=== PATIENT | female | born 1990 | race Caucasian/White ===

== ENCOUNTER 2022-02-10 16:10 | Emergency (ER) | payer OTHER, SELFPAY ==
[2022-02-10 16:45] VITALS: BP 125/78; PULSE 59; RESP 18; TEMP 36.9; O2SAT 99
--- NOTE | 2022-02-10 17:20 | ED.GENADULT ---
HPI - General Adult General Chief complaint: Upper Respiratory Infection Stated complaint: cough,congestion History of Present Illness HPI narrative: Mrs. Pereira is a plesant 31 y/o female. PMHx non-contributory. Presents to [facility] today with acute complaints of maxillary facial pressure, sinus congestion, purulent nasal discharge, and cough for the past 1.5 weeks. She describes a thick nasal discharge, PND, and URI irritation. No fevers. No neck pain. No GARCIA, focal weakness. Cough, without wheezing or dyspnea. Denies chest pain, palpitations, edema. Denies GI upset/N/V/D. Client reports to have been recently exposed to young child at home, ill with similar issues. She had taken a home Covid 19 test [employer], and this was negative. She is without additional acute c/o upon PE. Related Data Home Medications Medication Instructions Recorded Confirmed cyclobenzaprine 10 mg tablet 10 mg DIRECTED 02/10/22 02/10/22 estradiol 2 mg tablet 2 mg DAILY 02/10/22 02/10/22 Allergies Allergy/AdvReac Type Severity Reaction Status Date / Time No Known Allergies Allergy Verified 02/10/22 17:25 Review of Systems Review of Systems: CONSTITUTIONAL: Denies fever, chills, sweats. EYES: Denies visual changes, redness, discharge. ENT: + rhinorrhea, congestion. No sore throat, otalgia. CARDIOVASCULAR: Denies chest pain, palpitations, edema. RESPIRATORY: Denies dyspnea, wheezing. + cough. GASTROINTESTINAL: Denies abdominal pain, nausea, vomiting, diarrhea. GENITOURINARY: Denies dysuria, hematuria, abnormal discharge SKIN: Denies rash or itching. MUSCULOSKELETAL: Denies acute back pain, joint pain, or myalgia. NEUROLOGIC: Denies numbness, or focal weakness. PSYCHIATRIC: Denies anxiety or depression. Exam Narrative: GENERAL: This is a well-nourished, well-developed adult, in no apparent distress. HEAD: normocephalic. EYES: Sclera clear/white. EARS: External ears normal, auditory canals clear and without drainage, TMs normal. NOSE: External nose normal. Positive Rhinorrhea, PND. No obstruction, nares patent. THROAT: Mucous membranes moist, posterior pharynx is erythematous. No exudative changes. Uvula midline, no airway swelling or stridor. NECK: Neck supple, non-tender without lymphadenopathy, masses or thyromegaly. No meningeal signs. CARDIOVASCULAR: Regular rate and rhythm without murmurs, gallops, or rubs. RESPIRATORY: Breath sounds equal bilaterally. Upper airway Rhonchi, cleared w/cough. No wheezes, rales, or distress. GASTROINTESTINAL: Abdomen soft. SKIN: warm, intact. NEURO: Alert, active. No focal neurologic deficits. Course Course Level of Care: Express Care Visit Vital Signs Vital signs: Vital Signs Temperature 36.9 C 02/10/22 16:45 Pulse Rate 59 L 02/10/22 16:45 Respiratory Rate 18 02/10/22 16:45 Blood Pressure 125/78 02/10/22 16:45 Pulse Oximetry 99 02/10/22 16:45 Oxygen Delivery Room Air 02/10/22 16:45 Temperature 36.9 C 02/10/22 16:45 Pulse Rate 59 L 02/10/22 16:45 Respiratory Rate 18 02/10/22 16:45 Blood Pressure 125/78 02/10/22 16:45 Pulse Oximetry 99 02/10/22 16:45 Oxygen Delivery Room Air 02/10/22 16:45 Medical Decision Making MDM Narrative Medical decision making narrative: -Afebrile, non-tachycardic, appears non-toxic. -Will start on oral Amoxicillin antimicrobial & steroid regimen, consider bacterial component w/manifestations now > 1.5 weeks. -May resume all additional OTC remedies prn for other symptomatic reliefs. -PCP F/U 1WK. -ER W/Emergent status changes. Pt agrees. Differential Diagnosis Differential Diagnosis: Differential Diagnosis: Consideration of the following conditions may be warranted for the presenting problem, they are not final diagnoses: upper respiratory infection, otitis media, sinusitis, RSV viral infection, bronchitis, pharyngitis, Streptococcal sore throat, COVID-19, and other. Vital Signs Vital
== END 2022-02-10 17:36 | disposition home or self-care (01) ==
PROVIDERS: Emergency Provider Nurse Practitioner Adult Health; PCP Physician Assistant
DX: J02.9 Acute pharyngitis, unspecified (principal); J32.9 Chronic sinusitis, unspecified
CPT/HCPCS: 99203; G0463

== ENCOUNTER 2023-01-30 08:01 | Emergency (ER) | payer OTHER, SELFPAY ==
--- NOTE | 2023-01-30 08:08 | ED.URI ---
HPI - URI/Sore Throat General Chief Complaint: Upper Respiratory Infection Stated Complaint: sorethroat,congestion Time Seen by Provider: 01/30/23 08:10 Source: patient Mode of arrival: ambulatory Limitations: no limitations History of Present Illness HPI Narrative: Tita is a 32-year-old female patient presenting to the clinic today with complaints of sore throat and nasal congestion x1-2 days. She reports no fever or chills. States she has had bronchitis and croup going around at home. Related Data Home Medications Medication Instructions Recorded Confirmed cyclobenzaprine 10 mg tablet 10 mg DIRECTED 02/10/22 02/10/22 estradiol 2 mg tablet 2 mg DAILY 02/10/22 02/10/22 Allergies Allergy/AdvReac Type Severity Reaction Status Date / Time No Known Allergies Allergy Verified 02/10/22 17:25 Review of Systems Review of Systems: Pertinent positives per HPI. Patient denies any fever, chills, rash, headache, visual changes, dizziness, shortness of breath, chest pain, palpitations, nausea, vomiting, diarrhea, constipation, abdominal pain, or any urinary issues. PMFSH Comments At the time of my signature, I reviewed and agree with the nursing past medical, surgical, social, and family history. There is no relevant family history pertinent to the patient complaint. Exam Narrative: General: Well-developed, well nourished, in no apparent distress Head: Normocephalic, atraumatic Eyes: Pupils equally round and reactive to light bilaterally, EOM intact, sclera and conjunctive clear, no discharge, lids normal Ears: TMs intact and clear, ear canals clear, no drainage, grossly hearing normal. Nose: Nares patent, clear discharge, no inflammation, no sinus tenderness. Mouth: Oropharynx without lesions or masses, good dentition, MMM. PND Neck: Supple, trachea midline, no enlargement of anterior or posterior cervical nodes, no thyroid masses or goiter palpable. Cardio: Regular rate and rhythm, s1 and s2 normal, no murmur appreciated. Resp: Clear to auscultation bilaterally anteriorly and posteriorly, no rhonchi, rales, wheezing or rubs Course Course Emergency Course: Portions of this record may have been created with voice recognition software. Level of Care: Express Care Visit Vital Signs Vital signs: Vital Signs Temperature 36.5 C 01/30/23 08:20 Pulse Rate 74 01/30/23 08:20 Respiratory Rate 20 01/30/23 08:20 Blood Pressure 112/69 01/30/23 08:20 Pulse Oximetry 100 01/30/23 08:20 Oxygen Delivery Room Air 01/30/23 08:20 Temperature 36.5 C 01/30/23 08:20 Pulse Rate 74 01/30/23 08:20 Respiratory Rate 20 01/30/23 08:20 Blood Pressure 112/69 01/30/23 08:20 Pulse Oximetry 100 01/30/23 08:20 Oxygen Delivery Room Air 01/30/23 08:20 Vital signs reviewed MDM - URI/Sore Throat MDM Narrative Medical decision making narrative: At the time of visit patient is resting comfortably on the exam table. COVID and strep swab was obtained and were negative. I suspect patient has URI/pharyngitis. Supportive measures were discussed with the patient she voiced understanding discharge instructions agrees to treatment plan. Differential Diagnosis Differential diagnosis: Likely upper respiratory infection, otitis media, sinusitis, viral infection, bronchitis, influenza, pharyngitis and other (COVID) Lab Data Labs: Strep Screen Presumptive Negative *(Reference Range: Negative)* Discharge Plan Discharge Clinical Impression: Upper respiratory infection Qualifiers: URI type: unspecified URI Qualified Code(s): J06.9 - Acute upper respiratory infection, unspecified Pharyngitis Qualifiers: Pharyngitis/tonsillitis etiology: unspecified etiology Qualified Code(s): J02.9 - Acute pharyngitis, unspecified Patient Disposition: Home, Self-Care Condition: Stable Instructions: Antibiotic Form, Pharyngitis (ED)
[2023-01-30 08:20] VITALS: BP 112/69; PULSE 74; RESP 20; TEMP 36.5; O2SAT 100
== END 2023-01-30 08:42 | disposition home or self-care (01) ==
PROVIDERS: Emergency Provider Nurse Practitioner Family; PCP Physician Assistant
DX: J06.9 Acute upper respiratory infection, unspecified (principal)
CPT/HCPCS: 87081; 87880; 99213; G0463

== ENCOUNTER 2025-04-11 09:10 | Outpatient (CLI) | payer OTHER, SELFPAY ==
--- NOTE | 2025-04-11 09:39 | ECG_ITS ---
Test Date: 2025-04-11 09:48:03 Measurements Intervals [place] Rate: 65 P: 48 WV: 109 QRS: 35 QRSD: 82 T: 28 QT: 371 QTc: 387 Interpretive Statements SINUS RHYTHM WITH SHORT WV INTERVAL No previous ECG available for comparison Electronically Signed On 04-11-2025 18:05:09 RECREATION INSTRUCTOR by Heather Mireles M.D.
--- OUTSIDE RECORDS SUMMARY | 2025-04-11 09:47 | XMS_ITS | Clinical Summary ---
Author Organization [facility] Address [address] [place] [address] Care Team Providers Care Almond Pan Finisher Name Role Phone Marcelo Martino PA-C Primary Care Provider [phone] Min Lyman OD Unavailable [phone] Source Comments [facility],non-owned Affiliates and Associated Physician Practices is amultiple site organization consisting of ambulatory clinics and hospital sitesin [place], [place], [place] and [place]. This disclosure is being madepursuant to the Care Everywhere program and may not contain all information available regarding this patient. Last updated 18.[facility] Allergies No known active allergies Medications * Be aware that medications may not be up to date on this document. Alwaysverify current medications with the patient. Ondansetron HCl (ZOFRAN PO) Active neomycin-polymy fozia-dexameth (Maxitrol) ophthalmic ointment Instill into left eye 2 times daily 12/29/2023 Active cyclobenzaprine (Flexeril) 10 MG tablet Take 1 (one) tablet by mouth nightly as needed 08/06/2022 Active Active Problems Comments Yes No known active problems Family History Medical History Relation Name Comments Cancer - Breast Mother Asthma Neg Hx Autoimmune Disease Neg Hx Bipolar Disorder Neg Hx Cancer - Colon Neg Hx Cancer - Other Neg Hx Cancer - Ovarian Neg Hx Cancer - Pancreatic Neg Hx Cancer - Prostate Neg Hx Depression Neg Hx Eczema Neg Hx Hypertension Neg Hx Migraine Neg Hx Osteoporosis Neg Hx Seizures Neg Hx Sudd. <30 Neg Hx Thyroid Disease Neg Hx Ulcerative Colitis Neg Hx Relation Name Status Comments Father Alive Mother Alive Social History Tobacco Use Types Packs/Day Years Used Date Smoking Tobacco: Never Smokeless Tobacco: Never Tobacco Cessation:Counseling Given: No Alcohol Use Standard Drinks/Week Comments No 0 (1 standard drink = 0.6 oz pur e alcohol) Comments Yes Sex and Gender Information Value Date Recorded Sex Assigned at Not on file Legal Sex Female 5:41 AM GROCERY MANAGER Gender Identity Not on file Sexual Orientation Not on file Last Filed Vital Signs Vital Sign Reading Time Taken Comments Blood Pressure 110/64 05/04/2018 11:28 AM GROCERY MANAGER Pulse 80 05/04/2018 11:28 AM GROCERY MANAGER Temperature 36.7 C (98 F) 05/04/2018 11:28 AM GROCERY MANAGER Respiratory Rate 16 05/04/2018 11:28 AM GROCERY MANAGER Oxygen Saturation 98% 05/04/2018 11:28 AM GROCERY MANAGER Inhaled Oxygen Concentration - - Weight 61.2 kg (135 lb) 05/04/2018 11:28 AM GROCERY MANAGER Height 162.6 cm (5' 4) 05/04/2018 11:28 AM GROCERY MANAGER Body Mass Index 23.17 05/04/2018 11:28 AM GROCERY MANAGER Plan of Treatment Health Maintenance Due Date Last Done Comments HIV SCREENING 2004 HEPATITIS C SCREENING 10/09/2007 DTAP/TDAP/TD VACCINES (1 - Tdap) 2008 HEPATITIS B VACCINE (1 of 3 - 19+ 3-dose series) 2008 PAP SMEAR 2010 HPV VACCINE (1 - 3-dose SCDM series) 2016 DEPRESSION SCREENING 06/01/2024 COVID-19 VACCINE (3 - 2024-2 6 season) 2025 09/11/2020, 08/14/2020 INFLUENZA VACCINE (#1) 2025 03/01/2020 ZOSTER VACCINE (1 of 2) 10/14/2039 Respiratory Syncytial Virus (RSV) Vaccine Pt: or over 60 yrs (1 - 1-dose 75+ series) 2064 HIB VACCINE Aged Out No longer eligi ble based on patient's age to complete this topic MENINGOCOCCAL (Group B) VACCINE SHARED DECISION-MAKING Aged Out No longer eligible based on patient's age to complete this topic MENINGOCOCCAL GROUPS A/C/Y/W VACCINE Aged Out No longer eligible b ased on patient's age to complete this topic PNEUMOCOCCAL VACCINE Aged Out No long er eligible based on patient's age to complete this topic Insurance [facility] Care Teams Almond Pan Finisher Relationship Specialty Start Date End Date Marcelo Martino PA-C [address] [place] [phone] PCP - General Physician Grease Rack Worker 01/04/24 Min Lyman, OD [address] [place] [phone] Police Investigator 01/04/24"
--- OUTSIDE RECORDS SUMMARY | 2025-04-11 09:48 | XMS_ITS | Clinical Summary ---
Author Organization [facility] Address [address] [place] [address] Care Team Providers Care Mysql Dba Name Role Phone Mesha Wilson MD Unavailable [phone] Cayla Silva Primary Care Provider + Allergies No known active allergies Medications hyoscyamine (LEVSIN) 0.125 mg SL tablet Take 1 tablet (0.125 mg total) by mouth every 6 (six) hours as needed 0 Active estradioL (ESTRACE) 2 mg tablet Take 1 tablet (2 mg total) by mouth daily 90 tablet 2 Active cyclobenzaprine (FLEXERIL) 10 mg tablet TAKE 1 TABLET BY MOUTH THREE TIMES A DAY NEEDED FOR MUSCLE SPASMS 60 tablet 2 3 Active ondansetron ODT (ZOFRAN-ODT) 4 mg disintegrating tablet Take 1 tablet (4 mg total) by mouth every 8 (eight) hours as needed for nausea 30 tablet 3 4 Active LORazepam (ATIVAN) 0.5 mg tablet Take 1 tablet (0.5 mg total) by mouth 3 (three) times a day as needed for anxiety 30 tablet 1 4 Active amoxicillin-clavula eloise (AUGMENTIN) 875-125 mg per tabletIndications:A cute cough Take 1 tablet by mouth 2 (two) times a day 5 Active guaiFENesin-codeine (GUAITUSS AC) liquid 100-10 mg/5 mLIndications:Acute cough Take 5-10 mL by mouth every 4 (four) hours as needed for cough 120 mL 5 Active benzonatate (TESSALON) 100 mg capsuleIndications: Cough Take 1 capsule (100 mg total) by mouth 3 (three) times a day as needed for cough 42 capsule 5 Active scopolamine 1 mg over 3 days patch [address] 1 patch on the skin every third day as needed (nausea) for 72 hours 4 patch 5 Active Active Problems Problem Noted Date Diagnosed Date Routine medical exam 03/07/2024 Situational anxiety 03/04/2024 Assessment & Plan (05/19/2024 4:28 PM BILLING TYPIST): Chronic, stable. Patient uses lorazepam as needed for flying Assessment & Plan (03/07/2024 6:46 AM CDT): Chronic, controlled with Ativan 0.5 mg PRN, use primarily when flying or traveling. Patient to follow up yearly. Osteopenia of multiple sites 08/18/2023 Assessment & Plan (05/19/2024 4:27 PM BILLING TYPIST): Bone density 08/11/23 reviewed Low bone mass Intolerant of bisphosphonate Discussed calcium and vitamin-D supplementation, weight-bearing exercise, avoiding tobacco and caffeine Would continue periodic monitoring of her bone density and consider other pharmacological intervention in the future if indicated Assessment & Plan (03/07/2024 6:45 AM CDT): Patient to remain off Fosamax, due to worsening GERD symptoms. She is to continue on vitamin D/calcium supplements daily and preforming daily weight bearing exercises. DEXA scan UTD. Follow up in 6 months. Assessment & Plan (08/18/2023 9:07 AM CDT): This is new and concerning given the patient's age they did take her ovaries when she had her hysterectomy we are going to start vitamin-D, 1200 mg of calcium, and 35 mg of Fosamax weekly. We did discuss the med use and potential side effects. We also talked about women's bone health and we will get a consult going at her next visit Joint pain 07/13/2023 H/O total hysterectomy 07/13/2023 Assessment & Plan (05/19/2024 4:30 PM BILLING TYPIST): Status post total hysterectomy with bilateral salpingo-oophorectomy - done due to the pt's maternal h/o breast cancer and strong desire to get rid of this risk along with recurrent heavy bleeding Follows with gynecology Hormone replacement therapy Chronic pain of both knees 07/13/2023 Assessment & Plan (03/07/2024 6:48 AM CDT): Chronic, worsening. Patient to continue on flexeril 10 mg PRN and exercising daily. Patient referred to pain management for follow up. Routine general medical exam ination at a [facility] care facility 01/15/2022 Assessment & Plan (03/07/2024 6:50 AM CDT): CBC, CMP, lipid panel ordered Mammogram ordered due to family history of breast cancer. DEXA last completed: 07/2023, low bone mass present. PAP not indicated, history of hysterectomy. Colonoscopy last completed: 06/2017 Vaccinations: UTD Patient to continue on current diet and exercise routine. Repeat wellness exam in one year. Assessment & Plan (01/15/2022 3:08 PM CDT): Healthcare maintenance updated Surgical menopause on hormone replacement therap y 03/18/2021 Assessment & Plan (08/18/2023 9:06 AM CDT): Patient had surgery due to her mother's history of breast cancer we discussed the importance of exercise and she is already doing this rigorously Mixed stress and urge urinary incontinence 01/25 Assessment & Plan (08/18/2023 9:06 AM CDT): This is no longer an issue Pelvic floor dysfunction in female 01/25/2021 Gastroesophageal reflux disease without esophagi tis 01/11/2019 Assessment & Plan (05/19/2024 4:28 PM BILLING TYPIST): Chronic, stable. Continue medications as needed. Following with GI Assessment & Plan (03/07/2024 6:43 AM CDT): Chronic, patient following with Dr. Liseth ASIF. Currently controlling her symptoms with famotidine 40 mg daily and diet. Last EGD completed in 06/2017. Assessment & Plan (07/13/2023 3:08 PM BILLING TYPIST): Avoid spicy, fried, greasy foods Keep hydrated with clear liquids Elevate HOB 2- 3 inches Avoid or cut down on caffeine, chocolates, and ETOH No late meals, or heavy meals after 7 pm Reg daily exercise No tight fitting clothing Stop smoking - if smoker Watch for worsening symptoms - ie diarrhea, vomiting, nausea, blood per rectum, vomiting up blood ,fever, arthralgias, rash etc. RTC prn or if new symptoms arise Pt or parent verbalizes understanding Assessment & Plan (01/15/2022 3:08 PM CDT): Images from the original note were not included. Avoid spicy, fried, greasy foods Keep hydrated with clear liquids Elevate HOB 2- 3 inches Avoid or cut down on caffeines, chocolates, and ETOH No late meals, or heavy meals after 7 pm Reg daily exercise No tight fitting clothing Stop smoking - if smoker Watch for worsening symptoms - ie diarrhea, vomiting, nausea, blood per rectum, vomiting up blood ,fever, arthralgias, rash etc. RTC prn or if new symptoms arise Pt or parent verbalizes understanding Assessment & Plan (01/09/2021 7:31 AM CDT): Images from the original note were not included. Avoid spicy, fried, greasy foods Keep hydrated with clear liquids Elevate HOB 2- 3 inches Avoid or cut down on caffeines, chocolates, and ETOH No late meals, or heavy meals after 7 pm Reg daily exercise No tight fitting clothing Stop smoking - if smoker Watch for worsening symptoms - ie diarrhea, vomiting, nausea, blood per rectum, vomiting up blood ,fever, arthralgias, rash etc. RTC prn or if new symptoms arise Pt or parent verbalizes understanding Assessment & Plan (04/09/2020 10:27 AM BILLING TYPIST): Images from the original note were not included. Avoid spicy, fried, greasy foods Keep hydrated with clear liquids Elevate HOB 2- 3 inches Avoid or cut down on caffeines, chocolates, and ETOH No late meals, or heavy meals after 7 pm Reg daily exercise No tight fitting clothing Stop smoking - if smoker Watch for worsening symptoms - ie diarrhea, vomiting, nausea, blood per rectum, vomiting up blood ,fever, arthralgias, rash etc. RTC prn or if new symptoms arise Pt or parent verbalizes understanding Assessment & Plan (03/14/2020 11:19 AM CDT): Images from the original note were not included. Avoid spicy, fried, greasy foods Keep hydrated with clear liquids Elevate HOB 2- 3 inches Avoid or cut down on caffeines, chocolates, and ETOH No late meals, or heavy meals after 7 pm Reg daily exercise No tight fitting clothing Stop smoking - if smoker Watch for worsening symptoms - ie diarrhea, vomiting, nausea, blood per rectum, vomiting up blood ,fever, arthralgias, rash etc. RTC prn or if new symptoms arise Pt or parent verbalizes understanding Assessment & Plan (10/04/2019 3:18 PM CDT): Images from the original note were not included. Avoid spicy, fried, greasy foods Keep hydrated with clear liquids Elevate HOB 2- 3 inches Avoid or cut down on caffeines, chocolates, and ETOH No late meals, or heavy meals after 7 pm Reg daily exercise No tight fitting clothing Stop smoking - if smoker Watch for worsening symptoms - ie diarrhea, vomiting, nausea, blood per rectum, vomiting up blood ,fever, arthralgias, rash etc. RTC prn or if new symptoms arise Pt or parent verbalizes understanding Lesion of esophagus 07/14/2017 Irritable bowel syndrome without diarrhea 2017 Assessment & Plan (05/19/2024 4:28 PM BILLING TYPIST): Chronic, stable. Patient follows with Gastroenterology. Uses Zofran as needed for nausea. Also prescribed Levsin and Pepcid in the past Assessment & Plan (03/07/2024 6:43 AM CDT): Chronic, patient following with Dr. Liseth ASIF. Symptoms controlled with diet. Last colonoscopy completed in 06/2017. Assessment & Plan (07/13/2023 3:08 PM BILLING TYPIST): This is controlled with diet Assessment & Plan (01/15/2022 3:08 PM CDT): This is controlled with meds and diet patient does see Gastroenterology Assessment & Plan (01/09/2021 7:32 AM CDT): This is currently resolved with diet will continue to follow Assessment & Plan (04/09/2020 10:28 AM BILLING TYPIST): Continue seeing GI Assessment & Plan (10/04/2019 3:18 PM CDT): Continue medications and diet Adjustment disorder with anxiety 12/11/2016 Assessment & Plan (08/18/2023 9:05 AM CDT): This is well controlled chronic condition with no SI HI will continue to follow Assessment & Plan (07/13/2023 3:07 PM BILLING TYPIST): This is well controlled, will continue to follow Assessment & Plan (01/15/2022 3:08 PM CDT): This is well controlled with rare Xanax use I am changing her to Ativan a it will last a little longer she primarily uses it for panic attacks and flying Assessment & Plan (04/09/2020 10:26 AM BILLING TYPIST): Medications as ordered, rarely using xanax Assessment & Plan (03/14/2020 11:19 AM CDT): Images from the original note were not included. Start buspar The pharmacologic and nonpharmacologic treatment of anxiety/depression were discusses with the patient. Included was a discussion of the current treatment regimens and their proposed mechanism of action concerning brain chemistry. Discussed the role of counseling as an adjunct to medications should we agree to pursue this. The patient is non-suicidal, and agrees to inform us of any change in this status follow up in 4-6 weeks- sooner if any problems Assessment & Plan (10/04/2019 3:17 PM CDT): Images from the original note were not included. The pharmacologic and nonpharmacologic treatment of anxiety/depression were discusses with the patient. Included was a discussion of the current treatment regimens and their proposed mechanism of action concerning brain chemistry. Discussed the role of counseling as an adjunct to medications should we agree to pursue this. The patient is non-suicidal, and agrees to inform us of any change in this status follow up in 4-6 weeks- sooner if any problems Other myositis, other site 09/15/2016 Assessment & Plan (03/14/2020 11:19 AM CDT): Ice and option for PT Assessment & Plan (10/04/2019 3:18 PM CDT): Ice, medications, option for trigger points Fibromyalgia 05/08/2015 Assessment & Plan (05/19/2024 4:28 PM BILLING TYPIST): Chronic, stable. Patient has tried several medications in the past. Currently managed with Flexeril 10 mg as needed. Stays active. Assessment & Plan (03/07/2024 6:48 AM CDT): Chronic, worsening. Patient to continue on flexeril 10 mg PRN and exercising daily. Patient referred to pain management for follow up. Assessment & Plan (08/18/2023 9:05 AM CDT): This is a well controlled chronic condition patient is exercising regularly Assessment & Plan (07/13/2023 3:07 PM BILLING TYPIST): This does not fit her regular fibromyalgia fibromyalgia has been controlled with diet and exercise will continue to follow Assessment & Plan (01/15/2022 3:08 PM CDT): This is currently fair control will continue to follow patient uses Flexeril Assessment & Plan (01/09/2021 7:31 AM CDT): We are going to continue anst-qll-[id number] medications as she has failed physical therapy I suspect there might be more of a skeletal issue on getting x-rays of the neck and thoracic spine Assessment & Plan (04/09/2020 10:27 AM BILLING TYPIST): Please start exercise Assessment & Plan (03/14/2020 11:19 AM CDT): Keep appointment with pain mgt Assessment & Plan (10/04/2019 3:18 PM CDT): Re-start neurontin, will taper up to tid over 2 weeks As needed t3 for severe pain, but this is temporary Nephrolithiasis 11/25/2010 Resolved Problems Problem Noted Date Diagnosed Date Resolved Date Strep pharyngitis 08/20/2022 03/04/2024 Assessment & Plan (08/20/2022 3:58 PM CDT): Medications as ordered Acute non-recurrent maxillary sinusitis 08/20/2022 03/07/2024 Acute non-recurrent maxillary sinusitis 01/15/2022 03/07/2024 Assessment & Plan (08/20/2022 3:59 PM CDT): Saline, medications f/u routine Assessment & Plan (01/15/2022 3:09 PM CDT): I suspect this is what is causing the cough I am going to prescribe some doxycycline a Medrol Dosepak and some Robitussin with codeine she is going to get aggressive with nasal saline if the cough does not resolve we will get a chest x-ray Postoperative state 03/22/2021 03/07/20 24 Nocturia 03/22/2021 03/07/2024 Neck pain 01/09/2021 03/07/2024 Assessment & Plan (01/09/2021 7:32 AM CDT): This is acute on chronic and has been receiving numerous trigger point injections am going to get an x-ray of the cervical and thoracic spine Abnormal uterine bleeding (AUB) 11/22/2020 03/18/2021 Overview (11/22/2020): Added automatically from request for surgery [id number] care following vaginal delivery 12/28/2018 03/18/2021 Overview (12/29/2018): # ID: Afebrile. No signs/symptoms of infection. # Heme: EBL 250 mL. No symptoms acute blood loss anemia. Patient Rh-; however, baby blood type AB- and patient does not meet PP RhoGam criteria. # CV/Pulm: Vital signs stable, within normal limits. # GI/: Tolerating PO. Voiding spontaneously. # Pain: Uncontrolled incision pain with above regimen. Adding lidocaine patch and scheduled tylenol. # Post DVT prophylaxis: Patient has the following moderate risk factors: None. Her post prophylaxis plan is SCDs and early ambulation # MOC: s/p BTL # MOF: Formula feeding # Disposition: Continue routine care Other specified noninflammat ory disorders of vagina 10/12/2018 03/07/2024 Supervision of other normal , antepartum 05/06/2018 03/18/2021 Overview (12/21/2018): -RH- Antibody screening/positive @ [facility] but repeat antibody screening with [facility] was negative. Will repeat T+S w/ 28 week labs. 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 [x] 1hr GCT at 24-28wks 79 [x] Flu Shot n/a [x] Tdap (27-36wks) 10/12/18 AB [x] Genetic Screening: undecided, did not pursue [x] Rhogam (if Rh neg): A- 10/12/2018 -AB [x] GBS at 36 wks: negative [x] -No fomula [x] control method: Desires BTL pp Has BC/BS insurance. Formula feeding, Boy ( NO circ) and Dr. 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 12/12/2014 05/06/2018 Low back pain 01/06/2012 05/06/2018 Immunizations Immunization Administration Dates Next Due Influenza, Unspecified 03/18/2024(Deferr ed: Patient decision),03/07/2023(Deferred: Patient decision),03/07/2023(Deferred: Patient decision),04/22/2022(Deferred: Patient decision),04/17/2021(Deferred: Patient Refused),03/01/2020,05/30/2019(Deferred : Patient decision) Moderna SARS-CoV-2 Monovalen t Vaccination (12+ YRS) 09/11/2020,08/14/2020 Tdap 10/12/2018,08/22/2015 Surgical History Surgery Date Site/Laterality Comments CYSTOSCOPY W/ URETEROSCOPY W / LITHOTRIPSY Cystoscopy With Ureteroscopy With Lithotripsy - (Added by TW Conv) EXTRACORPOREAL SHOCK WAVE LITHOTRIPSY Lithotripsy - Whole Body (Extracorporeal Shock Wave) - (Added by TW Conv) KIDNEY STONE SURGERY TUBAL LIGATION HYSTERECTOMY Medical History Medical History Date Comments Personal history of urinary calculi Nephrolithiasis - (Added by TW Conv) Personal history of diseases of the blood and blood-forming organs and certain disorders involving the immune mechanism History of anemia - (Added b y TW Conv) Gestational hypertension wit hout significant proteinuria -induced hypertensi on - (Added by TW Conv) Mechanical complication due to intrauterine contraceptive device Displacement Of IUD - (Added by TW Conv) Pelvic and perineal pain Pelvic pain - (Added by TW Conv) Kidney stone Anxiety IBS (irritable bowel syndrome) Fibromyalgia Menstrual problem Family History Medical History Relation Name Comments Alcohol abuse Father Zaid Hyperlipidemia Father Zaid Hypertension Father Zaid Hypertension - (Added by TW Conv)/Hypertension - (Added by TW Conv) Diabetes Maternal Grandfather Demetrius Heart disease Maternal Grandfather Demetrius Diabetes Maternal Grandmother Mel Heart disease Maternal Grandmother Mel Anemia Mother Nathaly Arthritis Mother Nathaly Bleeding Disorder Mother Nathaly Breast cancer Mother Nathaly Breast Cancer - (Added by TW Conv)/Breast Cancer - (Added by TW Conv) Cancer Mother Nathaly Hearing loss Mother Nathaly Hyperlipidemia Mother Nathaly Heart disease Paternal Grandfather Zaid Anesthesia problems Neg Hx Relation Name Status Comments Father Zaid Alive Maternal Grandfather Demetrius Maternal Grandmother Mel Mother Nathaly Alive Paternal Grandfather Zaid Social History Tobacco Use Types Packs/Day Years Used Date Smoking Tobacco: Never Smokeless Tobacco: Never Tobacco Cessation:Counseling Given: Not Answered Alcohol Use Standard Drinks/Week Comments No 0 (1 standard drink = 0.6 oz pur e alcohol) AUDIT-C Answer Date Recorded Q1: How often do you have a drink containing alc ohol? Monthly or less 05/19/2024 Q2: How many drinks containi ng alcohol do you have on a typical day when you are drinking? 1 or 2 05/19/2024 Q3: How often do you have si x or more drinks on one occasion? Never 05/19/2024 PHQ-2 Answer Date Recorded PHQ-2 Total Score (If total score is 3 or more points, staff should administer the PHQ-9) 0 05/19/2024 Comments No Sex and Gender Information Value Date Recorded Sex Assigned at Not on file Legal Sex Female 3:24 AM BILLING TYPIST Gender Identity Female 08/13/2018 10:06 AM CDT Sexual Orientation Not on file Obstetrics History Para Term AB IAB SAB Ectopic Multiple Livin g Live Births 5 4 4 1 4 4 Date Outcome GA Total Labor Labor/2nd/3rd Weight Sex Type Anes PTL Elsie A1 A5 Name Clin Term Livin g Term Livin g Term Livin g AB 019 Term 39w 0d 4h 09m 3h 50m/0h 11m/0h 08m 3.61 kg (7 lb 15.3 oz) M Vag-S pont Epidur al N Livin g 8 9 CHAPM AN,WALKER YSTEP HANIE Stran d, Sage gómez MD Complications:None Delivery Location:[facility] Main C ampus ([facility] 58LD) Comments 12/29-c/o pretty significant incisional pain today but otherwise looked OK. Started Lidocaine patch and added Tylenol which she wasn't getting for some reason. Last Filed Vital Signs Vital Sign Reading Time Taken Comments Blood Pressure 118/82 09/30/2024 8:20 AM CDT Pulse 75 09/30/2024 8:20 AM CDT Temperature 36.3 C (97.4 F) 09/30/2024 8:20 AM CDT Respiratory Rate 16 09/30/2024 8:20 AM CDT Oxygen Saturation 99% 09/30/2024 8:20 AM CDT Inhaled Oxygen Concentration - - Weight 68.2 kg (150 lb 4.8 oz) 09/30/2024 8:20 A M CDT Height 162.6 cm (5' 4) 09/30/2024 8:20 AM CDT Body Mass Index 25.8 09/30/2024 8:20 AM CDT Plan of Treatment Health Maintenance Due Date Last Done Comments Hepatitis C Screening 1989 Hepatitis B Screening 10/14/2007 Pneumococcal vaccine <65 (1 of 2 - PCV) 2008 HPV Vaccines (1 - 3-dose SCD M series) 2016 Covid-19 Vaccine ( - 2024-2 6 season) 2025 01/11/2022, 05/03/2021, 09/11/2020, Additional history exists Influenza Vaccine (#1) 2025 03/01/2020 Regular Well Visit/Exam 18-64 03/04/2025, 03/04/2024, 01/15/2022 Depression Screening 05/19/2025 05/19/2024, 03/04/2024, 07/13/2023, Additional history exists DTaP/Tdap/Td Vaccine (3 - Td or Tdap) 10/12/2028 10/12/2018, 08/22/2015 Varicella Vaccines Discontinued Medical Devices Implanted Type Area Canopy Stringer Device Identifier Shelf Expiration Date Model / Serial / Lot MusicIP [id number] Tvt Prolene 45x1.1cm Tape Mesh Transvaginal Blue - [id number] Implanted:Qty: 1 on 02/06/2021 by Leif Smith MD at [facility] N/A: Pelvis [employer] [facility] [id number] 01/29/2022 [id number] / / Insurance [employer] [facility] [employer] Advance Directives For more information, please contact: [phone] * Full Code (Latest Code Status on File) Date Activated Date Inactivated Comments 12/28/2018 6:41 PM 12/30/2018 6:49 PM * Full Code Date Activated Date Inactivated Comments 12/28/2018 9:32 AM 12/28/2018 6:41 PM Full CPR in case of cardiopulmonary arrest Care Teams Mysql Dba Relationship Specialty Start Date End Date Cayla Silva PA [address] [place] [address] PCP - General Family Medicine 05/19/24 Mesha Wilson MD [address] [place] [address] Referring Physician Obstetrics and Gynecology 02/15/24
--- OUTSIDE RECORDS SUMMARY | 2025-04-11 09:48 | XMS_ITS | Encounter Summary ---
Author Organization [facility] Care Team Providers Care Electrical Logging Engineer Name Role Phone Marcelo Martino Primary Care Provider [phone] Mesha Wilson MD Unavailable [phone] Cynthia Mancilla NP Primary Care Provider [phone] Cyala Silva Primary Care Provider + Encounter Details Date Type Department Care Team (Latest Contact Info) Description 04/03/2017 Orders Only [facility] CLINCONV Provider, MD Gabrielle [address] [place] [id number] Social History Tobacco Use Types Packs/Day Years Used Date Smoking Tobacco: Never Assessed Comments Unknown Sex and Gender Information Value Date Recorded Sex Assigned at Not on file Legal Sex Female 3:24 AM GANG BOSS Gender Identity Female 08/13/2018 10:06 AM CDT Sexual Orientation Not on file documented as of this encounter Plan of Treatment Not on file documented as of this encounter Procedures Procedure Name Priority Date/Time Associated Diagnosis Comments COLONOSCOPY - SCAN 04/03/2017 12 :00 AM CDT documented in this encounter Results * COLONOSCOPY - SCAN (04/03/2017 12:00 AM CDT) Narrative 04/03/2017 12:00 AM CDT Ordered by an unspecified provider. Historical Provider Final Res ult documented in this encounter Visit Diagnoses Not on filedocumented in this encounter Additional Health Concerns Infection Onset Date Last Indicated Resolved Time COVID: Suspected 07/26/2020 07/26/2020 08/09/2020 3:07 AM GANG BOSS documented as of this encounter Care Teams Electrical Logging Engineer Relationship Specialty Start Date End Date Marcelo Martino PA PCP - General 10/13/17 03/03/24 Cynthia Mancilla, SALES AND CATERING COORDINATOR [address] [facility] [address] [place] [address] PCP - General Family Medicine 03/04/24 05/18/24 Cayla Silva PA [address] [place] [address] PCP - General Family Medicine 05/19/24 Mesha Wilson MD [address] [place] [address] Referring Physician Obstetrics and Gynecology 02/15/24 documented as of this encounter
--- OUTSIDE RECORDS SUMMARY | 2025-04-11 09:48 | XMS_ITS | Encounter Summary ---
Author Organization [facility] Address [address] [place] [address] Phone Care Team Providers Care Family Worker Name Role Phone Marcelo Martino Primary Care Provider Mesha Wilson MD Unavailable [phone] Cynthia Mancilla NP Primary Care Provider [phone] Cayla Silva Primary Care Provider + Encounter Details Date Type Department Care Team (Late st Contact Info) Description 05/19/2018 Documentation [facility] Medicine Obstetrics and Gynecology [address] [facility] [address] 7th Floor [address] [place] [address] Morgan Harvey Social History Tobacco Use Types Packs/Day Years Used Date Smoking Tobacco: Never Smokeless Tobacco: Never Alcohol Use Standard Drinks/Week Comments No 0 (1 standard drink = 0.6 oz pur e alcohol) Comments Yes Sex and Gender Information Value Date Recorded Sex Assigned at Not on file Legal Sex Female 3:24 AM HARVESTING CONTRACTOR Gender Identity Female 08/13/2018 10:06 AM CDT Sexual Orientation Not on file documented as of this encounter Functional Status documented as of this encounter Plan of Treatment Not on file documented as of this encounter Visit Diagnoses Not on filedocumented in this encounter Additional Health Concerns Infection Onset Date Last Indicated Resolved Time COVID: Suspected 07/26/2020 07/26/2020 08/09/2020 3:07 AM HARVESTING CONTRACTOR documented as of this encounter Care Teams Family Worker Relationship Specialty Start Date End Date Marcelo Martino PA PCP - General 10/13/17 03/03/24 Cynthia Mancilla, DIGITAL COMMENTATOR [address] [facility] [address] [place], [place] [address] PCP - General Family Medicine 03/04/24 05/18/24 Cayla Silva PA [address] [place], [place] [id number] PCP - General Family Medicine 05/19/24 Mesha Wilson MD [address] [place] [address] Referring Physician Obstetrics and Gynecology 02/15/24 documented as of this encounter
--- OUTSIDE RECORDS SUMMARY | 2025-04-11 09:48 | XMS_ITS | Encounter Summary ---
Author Organization [facility] Facility Care Team Providers Care Veterinary Parasitologist Name Role Phone Marcelo Martino Primary Care Provider [phone] Mesha Wilson MD Unavailable [phone] Cynthia Mancilla NP Primary Care Provider [phone] Cayla Silva Primary Care Provider + Encounter Details Date Type Department Care Team (Latest Contact Info) Description 06/18/2017 Orders Only [facility] CLINCONV Provider, MD Gabrielle [address] [place] [address] Social History Tobacco Use Types Packs/Day Years Used Date Smoking Tobacco: Never Assessed Comments Unknown Sex and Gender Information Value Date Recorded Sex Assigned at Not on file Legal Sex Female 3:24 AM ROTARY KILN OPERATOR Gender Identity Female 08/13/2018 10:06 AM CDT Sexual Orientation Not on file documented as of this encounter Functional Status documented as of this encounter Plan of Treatment Not on file documented as of this encounter Procedures Procedure Name Priority Date/Time Associated Diagnosis Comments SCAN - LABS 06/19/2017 12:00 AM ROTARY KILN OPERATOR SCAN - LABS 06/18/2017 12:00 AM ROTARY KILN OPERATOR documented in this encounter Results * SCAN - LABS (06/19/2017 12:00 AM ROTARY KILN OPERATOR) Narrative 06/19/2017 12:00 AM ROTARY KILN OPERATOR Ordered by an unspecified provider. us Historical Provider MD Final Res ult * SCAN - LABS (06/18/2017 12:00 AM ROTARY KILN OPERATOR) Narrative 06/18/2017 12:00 AM ROTARY KILN OPERATOR Ordered by an unspecified provider. us Historical Provider Final Res ult documented in this encounter Visit Diagnoses Not on filedocumented in this encounter Additional Health Concerns Infection Onset Date Last Indicated Resolved Time COVID: Suspected 07/26/2020 07/26/2020 08/09/2020 3:07 AM ROTARY KILN OPERATOR documented as of this encounter Care Teams Veterinary Parasitologist Relationship Specialty Start Date End Date Marcelo Martino PA PCP - General 10/13/17 03/03/24 Cynthia Mancilla NP [address] [facility] [address] [place] [address] PCP - General Family Medicine 03/04/24 05/18/24 Cayla Silva PA [address] [facility] [address] [place], [place] [id number] PCP - General Family Medicine 05/19/24 Mesha Wilson MD [address] [place] [address] Referring Physician Obstetrics and Gynecology 02/15/24 documented as of this encounter
--- OUTSIDE RECORDS SUMMARY | 2025-04-11 09:48 | XMS_ITS | Encounter Summary ---
Author Organization [facility] Facility Care Team Providers Care Plug Paster Name Role Phone Marcelo Martino Primary Care Provider [phone] Mesha Wilson MD Unavailable [phone] Cynthia Mancilla NP Primary Care Provider [phone] Cayla Silva Primary Care Provider + Encounter Details Date Type Department Care Team (Latest Contact Info) Description 10/16/2016 Orders Only [facility] CLINCONV Provider, MD Gabrielle [address] [place] [address] Social History Tobacco Use Types Packs/Day Years Used Date Smoking Tobacco: Never Assessed Comments Unknown Sex and Gender Information Value Date Recorded Sex Assigned at Not on file Legal Sex Female 3:24 AM ACID PLANT HELPER Gender Identity Female 08/13/2018 10:06 AM CDT Sexual Orientation Not on file documented as of this encounter Functional Status documented as of this encounter Plan of Treatment Not on file documented as of this encounter Procedures Procedure Name Priority Date/Time Associated Diagnosis Comments SCAN - LABS 10/16/2016 12:00 AM CDT documented in this encounter Results * SCAN - LABS (10/16/2016 12:00 AM CDT) Narrative 10/16/2016 12:00 AM CDT Ordered by an unspecified provider. Historical Provider Final Res ult documented in this encounter Visit Diagnoses Not on filedocumented in this encounter Additional Health Concerns Infection Onset Date Last Indicated Resolved Time COVID: Suspected 07/26/2020 07/26/2020 08/09/2020 3:07 AM ACID PLANT HELPER documented as of this encounter Care Teams Plug Paster Relationship Specialty Start Date End Date Marcelo Martino PA PCP - General 10/13/17 03/03/24 Cynthia Mancilla, CHAPLAIN [address] [facility] 230 [place] [address] PCP - General Family Medicine 03/04/24 05/18/24 Cayla Silva PA [address] [place] [address] PCP - General Family Medicine 05/19/24 Mesha Wilson MD [address] [place], [place] [address] Referring Physician Obstetrics and Gynecology 02/15/24 documented as of this encounter
--- OUTSIDE RECORDS SUMMARY | 2025-04-11 09:48 | XMS_ITS | Encounter Summary ---
Author Organization [facility] Care Team Providers Care Hoseman Name Role Phone Marcelo Martino Primary Care Provider [phone] Mesha Wilson MD Unavailable [phone] Cynthia Mancilla NP Primary Care Provider [phone] Cayla Silva Primary Care Provider + Encounter Details Date Type Department Care Team (Latest Contact Info) Description 06/17/2017 Orders Only [facility] CLINCONV Provider, MD Gabrielle [address] [place] [address] Social History Tobacco Use Types Packs/Day Years Used Date Smoking Tobacco: Never Assessed Comments Unknown Sex and Gender Information Value Date Recorded Sex Assigned at Not on file Legal Sex Female 3:24 AM NET APPLICATION SUPPORT SPECIALIST Gender Identity Female 08/13/2018 10:06 AM CDT Sexual Orientation Not on file documented as of this encounter Functional Status documented as of this encounter Plan of Treatment Not on file documented as of this encounter Procedures Procedure Name Priority Date/Time Associated Diagnosis Comments COLONOSCOPY - SCAN 06/17/2017 12 :00 AM NET APPLICATION SUPPORT SPECIALIST documented in this encounter Results * COLONOSCOPY - SCAN (06/17/2017 12:00 AM NET APPLICATION SUPPORT SPECIALIST) Narrative 06/17/2017 12:00 AM NET APPLICATION SUPPORT SPECIALIST Ordered by an unspecified provider. Historical Provider Final Res ult documented in this encounter Visit Diagnoses Not on filedocumented in this encounter Additional Health Concerns Infection Onset Date Last Indicated Resolved Time COVID: Suspected 07/26/2020 07/26/2020 08/09/2020 3:07 AM NET APPLICATION SUPPORT SPECIALIST documented as of this encounter Care Teams Hoseman Relationship Specialty Start Date End Date Marcelo Martino PA PCP - General 10/13/17 03/03/24 Cynthia Mancilla, CAMERA SYSTEMS ENGINEER [facility] [facility] [address] [place] [address] PCP - General Family Medicine 03/04/24 05/18/24 Cayla Silva PA [address] [facility] [address] [place] [address] PCP - General Family Medicine 05/19/24 Mesha Wilson MD [address] [place] [address] Referring Physician Obstetrics and Gynecology 02/15/24 documented as of this encounter
--- OUTSIDE RECORDS SUMMARY | 2025-04-11 09:48 | XMS_ITS | Encounter Summary ---
Author Organization [facility] Facility Care Team Providers Care Senior Computer Specialist Name Role Phone Marcelo Martino Primary Care Provider [phone] Mesha Wilson MD Unavailable [phone] Cynthia Mancilla NP Primary Care Provider [phone] Cayla Silva Primary Care Provider + Encounter Details Date Type Department Care Team (Latest Contact Info) Description 11/05/2016 Orders Only [facility] CLINCONV Provider, MD Gabrielle [address] [place] [address] Social History Tobacco Use Types Packs/Day Years Used Date Smoking Tobacco: Never Assessed Comments Unknown Sex and Gender Information Value Date Recorded Sex Assigned at Not on file Legal Sex Female 3:24 AM FEED PREPARATION OPERATOR Gender Identity Female 08/13/2018 10:06 AM CDT Sexual Orientation Not on file documented as of this encounter Functional Status documented as of this encounter Plan of Treatment Not on file documented as of this encounter Procedures Procedure Name Priority Date/Time Associated Diagnosis Comments SCAN - LABS 11/05/2016 12:00 AM CDT documented in this encounter Results * SCAN - LABS (11/05/2016 12:00 AM CDT) Narrative 11/05/2016 12:00 AM CDT Ordered by an unspecified provider. Historical Provider Final Res ult documented in this encounter Visit Diagnoses Not on filedocumented in this encounter Additional Health Concerns Infection Onset Date Last Indicated Resolved Time COVID: Suspected 07/26/2020 07/26/2020 08/09/2020 3:07 AM FEED PREPARATION OPERATOR documented as of this encounter Care Teams Senior Computer Specialist Relationship Specialty Start Date End Date Marcelo Martino PA PCP - General 10/13/17 03/03/24 Cynthia Mancilla, CIRCULAR KNITTER HELPER [address] [facility] 230 [place] [address] PCP - General Family Medicine 03/04/24 05/18/24 Cayla Silva PA [address] [place] [address] PCP - General Family Medicine 05/19/24 Mesha Wilson MD [address] [place], [place] [address] Referring Physician Obstetrics and Gynecology 02/15/24 documented as of this encounter
[2025-04-11 10:29] LABS: Hematocrit 39.9 % (37.0-47.0); Hemoglobin 13.2 g/dL (12.0-15.0)
== END 2025-04-11 09:11 | disposition home or self-care (01) ==
PROVIDERS: Anesthesiology; Visit Provider Surgery Plastic and Reconstructive Surgery
DX: Z41.1 Encounter for cosmetic surgery (principal)
CPT/HCPCS: 36415; 85014; 85018; 93005

== ENCOUNTER 2025-04-20 00:39 | Day surgery (SDC) | payer OTHER, SELFPAY ==
[2025-04-06 14:31] VITALS: BMI 24.9
--- NOTE | 2025-04-06 14:37 | PC.NURSE ---
[facility] has started construction of its new state of the art ER which will open Spring 2026. With this, we anticipate parking may be a challenge for some our surgical patients and families. Parking spaces are limited but are available for all Surgical, obstetrics, and ER patients sharing this lot. If you arrive and find you are having a hard time finding a parking space, please note that we understand the challenges, please drive around the hospital and park near Hospital Entrance 1. When you enter this entrance, you can ask a volunteer to direct or take you back to the surgical waiting area to check in. We appreciate everyone?s understanding of these expected challenges while we build for your future. Report to the Outpatient Waiting Room, entrance under the green pavilion located off [address], at time _0600_ on date _[phone]_. Planned Procedure Time: _0730_.? Time changes happen often and if your time is changed the preop area will call you the afternoon before. - You and your visitor will be asked to self-screen and do not enter if you have any COVID symptoms. Please call surgeon if you need to reschedule. - A mask is optional within the hospital at this time. Patients may have clear liquids (water, carbonated beverages, clear teas, apple juice) until 3 hours prior to surgery with a maximum of 20 ounces. - No food from midnight until time of surgery and no smoking, or chewing tobacco (or any form of nicotine). No chewing gum, candy or mints. Take only the following medications with a SIP of water on the morning of surgery: ___None___ DO NOT STOP ANY OF YOUR OTHER PRESCRIPTION MEDICATIONS PRIOR TO SURGERY EXCEPT THE FOLLOWING Hold all vitamins and supplements for 3 days per anesthesiologist. Medications to discontinue per physician Date to take last usfy___[id number]___ Please no make-up, nail irish, hairspray, perfume, deodorant, or body powder the day of surgery.? No jewelry (including any body piercings) or valuables the day of surgery, leave them at home.? Please take a shower or bath the night before, or the morning of, surgery with an antibacterial soap.? Wear comfortable, loose fitting clothing.? - Jewelry must be removed prior to entering the operating room.? Rings and piercings that are not removed may be cut off. - The hospital will not accept responsibility for valuables.? - Please leave all valuables, including medications, at home the day of surgery. If you are going home after surgery, a licensed sweeper driver must drive you home.? - NO public transportation without another adult if you receive anesthesia. - We recommend that an adult stay with you for 24 hours following discharge. - We also recommend that you do not drive, make important decision, drink alcoholic beverages, or take any drugs that were not prescribed by your health care provider for at least 24 hours after your discharge time. Follow any additional instructions given to you from your surgeon. Telephone instructions given to __Tita___and asked if any additional questions and then verbalized understanding. Patient advised to call surgeon office or pre surgery nurse liaison [phone] if any additional questions.
[2025-04-20] VITALS (13 sets, daily range): BP systolic 97–134; BP diastolic 54–85; PULSE 56–84; RESP 12–16; TEMP 36.2–36.5; O2SAT 98–100; BMI 25.1
--- OUTSIDE RECORDS SUMMARY | 2025-04-20 02:04 | XMS_ITS | Encounter Summary ---
Author Organization [facility] Facility Care Team Providers Care Shale Processing Technician Name Role Phone Marcelo Martino Primary Care Provider [phone] Mesha Wilson MD Unavailable [phone] Cynthia Mancilla NP Primary Care Provider [phone] Cayla Silva Primary Care Provider + Encounter Details Date Type Department Care Team (Latest Contact Info) Description 11/05/2016 Orders Only [facility] CLINCONV Provider, MD Gabrielle [address] [place] [address] Social History Tobacco Use Types Packs/Day Years Used Date Smoking Tobacco: Never Assessed Comments Unknown Sex and Gender Information Value Date Recorded Sex Assigned at Not on file Legal Sex Female 3:24 AM TILLER WORKER Gender Identity Female 08/13/2018 10:06 AM CDT [...] COVID: Suspected 07/26/2020 07/26/2020 08/09/2020 3:07 AM TILLER WORKER documented as of this encounter Care Teams Shale Processing Technician Relationship Specialty Start Date End Date Marcelo Martino PA PCP - General 10/13/17 03/03/24 Cynthia Mancilla, CARE ASSOCIATE [address] [facility] [address] [place] [address] PCP - General Family Medicine 03/04/24 05/18/24 Cayla Silva PA [address] [place] [address] PCP - General Family Medicine 05/19/24 Mesha Wilson MD [address] [place], [place] [address] Referring Physician Obstetrics and Gynecology 02/15/24 documented as of this encounter
--- OUTSIDE RECORDS SUMMARY | 2025-04-20 02:04 | XMS_ITS | Encounter Summary ---
Author Organization [facility] Facility Care Team Providers Care Corporate Relations Manager Name Role Phone Marcelo Martino Primary Care Provider [phone] Mesha Wilson MD Unavailable [phone] Cynthia Mancilla NP Primary Care Provider [phone] Cayla Silva Primary Care Provider + Encounter Details Date Type Department Care Team (Latest Contact Info) Description 06/18/2017 Orders Only [facility] CLINCONV Provider, MD Gabrielle [address] [place] [address] Social History Tobacco Use Types Packs/Day Years Used Date Smoking Tobacco: Never Assessed Comments Unknown Sex and Gender Information Value Date Recorded Sex Assigned at Not on file Legal Sex Female 3:24 AM MACHINE BASTER Gender Identity Female 08/13/2018 10:06 AM CDT Sexual Orientation Not on file documented as of this encounter Functional Status documented as of this encounter Plan of Treatment Not on file documented as of this encounter Procedures Procedure Name Priority Date/Time Associated Diagnosis Comments SCAN - LABS 06/19/2017 12:00 AM MACHINE BASTER SCAN - LABS 06/18/2017 12:00 AM MACHINE BASTER documented in this encounter Results * SCAN - LABS (06/19/2017 12:00 AM MACHINE BASTER) Narrative 06/19/2017 12:00 AM MACHINE BASTER Ordered by an unspecified provider. us Historical Provider MD Final Res ult * SCAN - LABS (06/18/2017 12:00 AM MACHINE BASTER) Narrative 06/18/2017 12:00 AM MACHINE BASTER Ordered by an unspecified provider. us Historical Provider Final Res ult documented in this encounter Visit Diagnoses Not on filedocumented in this encounter Additional Health Concerns Infection Onset Date Last Indicated Resolved Time COVID: Suspected 07/26/2020 07/26/2020 08/09/2020 3:07 AM MACHINE BASTER documented as of this encounter Care Teams Corporate Relations Manager Relationship Specialty Start Date End Date Marcelo Martino PA PCP - General 10/13/17 03/03/24 Cynthia Mancilla NP [address] [facility] 230 [place] [address] PCP - General Family Medicine 03/04/24 05/18/24 Cayla Silva PA [address] [facility] [address] [place], [place] [phone] PCP - General Family Medicine 05/19/24 Mesha Wilson MD [address] [place] [address] Referring Physician Obstetrics and Gynecology 02/15/24 documented as of this encounter
--- OUTSIDE RECORDS SUMMARY | 2025-04-20 02:04 | XMS_ITS | Encounter Summary ---
Author Organization [facility] Facility Care Team Providers Care Language Translator Name Role Phone Marcelo Martino Primary Care Provider Mesha Wilson MD Unavailable [phone] Cynthia Mancilla NP Primary Care Provider [phone] Cayla Silva Primary Care Provider + Encounter Details Date Type Department Care Team (Latest Contact Info) Description 10/16/2016 Orders Only [facility] CLINCONV Provider, MD Gabrielle [address] [place] [address] Social History Tobacco Use Types Packs/Day Years Used Date Smoking Tobacco: Never Assessed Comments Unknown Sex and Gender Information Value Date Recorded Sex Assigned at Not on file Legal Sex Female 3:24 AM SALES ACCOUNT DIRECTOR Gender Identity Female 08/13/2018 10:06 AM CDT [...] COVID: Suspected 07/26/2020 07/26/2020 08/09/2020 3:07 AM SALES ACCOUNT DIRECTOR documented as of this encounter Care Teams Language Translator Relationship Specialty Start Date End Date Marcelo Martino PA PCP - General 10/13/17 03/03/24 Cynthia Mancilal, FAMILY AND DIVORCE LEGAL ASSISTANT [address] [facility] 230 [place] [address] PCP - General Family Medicine 03/04/24 05/18/24 Cayla Silva PA [address] [place] [address] PCP - General Family Medicine 05/19/24 Mesha Wilson MD [address] [place], [place] [id number] Referring Physician Obstetrics and Gynecology 02/15/24 documented as of this encounter
--- OUTSIDE RECORDS SUMMARY | 2025-04-20 02:04 | XMS_ITS | Clinical Summary ---
Author Organization [facility] Address [address] [place] [address] Care Team Providers Care Licensed Bondsman Name Role Phone Mesha Wilson MD Unavailable [phone] Cayla Silva Primary Care Provider + Allergies [...] 03/04/2024 Assessment & Plan (05/19/2024 4:28 PM HEARING AID SPECIALIST): Chronic, stable. Patient uses lorazepam as needed for flying Assessment & Plan (03/07/2024 6:46 AM CDT): Chronic, controlled with Ativan 0.5 mg PRN, use primarily when flying or traveling. Patient to follow up yearly. Osteopenia of multiple sites 08/18/2023 Assessment & Plan (05/19/2024 4:27 PM HEARING AID SPECIALIST): Bone density 08/11/23 reviewed Low bone mass [...] 07/13/2023 Assessment & Plan (05/19/2024 4:30 PM HEARING AID SPECIALIST): Status post total hysterectomy with bilateral salpingo-oophorectomy [...] Routine general medical exam ination at a [facility] care facility 01/15/2022 Assessment & Plan [...] 01/11/2019 Assessment & Plan (05/19/2024 4:28 PM HEARING AID SPECIALIST): Chronic, stable. Continue medications as needed. Following with GI Assessment & Plan (03/07/2024 6:43 AM CDT): Chronic, patient following with Dr. Liseth ASIF. Currently controlling her symptoms with famotidine 40 mg daily and diet. Last EGD completed in 06/2017. Assessment & Plan (07/13/2023 3:08 PM HEARING AID SPECIALIST): Avoid spicy, fried, greasy foods Keep hydrated [...] understanding Assessment & Plan (04/09/2020 10:27 AM HEARING AID SPECIALIST): Images from the original note were not [...] 2017 Assessment & Plan (05/19/2024 4:28 PM HEARING AID SPECIALIST): Chronic, stable. Patient follows with Gastroenterology. Uses Zofran as needed for nausea. Also prescribed Levsin and Pepcid in the past Assessment & Plan (03/07/2024 6:43 AM CDT): Chronic, patient following with Dr. Liseth ASIF. Symptoms controlled with diet. Last colonoscopy completed in 06/2017. Assessment & Plan (07/13/2023 3:08 PM HEARING AID SPECIALIST): This is controlled with diet Assessment & Plan (01/15/2022 3:08 PM CDT): This is controlled with meds and diet patient does see Gastroenterology Assessment & Plan (01/09/2021 7:32 AM CDT): This is currently resolved with diet will continue to follow Assessment & Plan (04/09/2020 10:28 AM HEARING AID SPECIALIST): Continue seeing GI Assessment & Plan (10/04/2019 3:18 PM CDT): Continue medications and diet Adjustment disorder with anxiety 12/11/2016 Assessment & Plan (08/18/2023 9:05 AM CDT): This is well controlled chronic condition with no SI HI will continue to follow Assessment & Plan (07/13/2023 3:07 PM HEARING AID SPECIALIST): This is well controlled, will continue to follow Assessment & Plan (01/15/2022 3:08 PM CDT): This is well controlled with rare Xanax use I am changing her to Ativan a it will last a little longer she primarily uses it for panic attacks and flying Assessment & Plan (04/09/2020 10:26 AM HEARING AID SPECIALIST): Medications as ordered, rarely using xanax Assessment [...] 05/08/2015 Assessment & Plan (05/19/2024 4:28 PM HEARING AID SPECIALIST): Chronic, stable. Patient has tried several medications [...] regularly Assessment & Plan (07/13/2023 3:07 PM HEARING AID SPECIALIST): This does not fit her regular fibromyalgia fibromyalgia has been controlled with diet and exercise will continue to follow Assessment & Plan (01/15/2022 3:08 PM CDT): This is currently fair control will continue to follow patient uses Flexeril Assessment & Plan (01/09/2021 7:31 AM CDT): We are going to continue jjph-bdy-lesfmmp medications as she has failed physical therapy I suspect there might be more of a skeletal issue on getting x-rays of the neck and thoracic spine Assessment & Plan (04/09/2020 10:27 AM HEARING AID SPECIALIST): Please start exercise Assessment & Plan (03/14/2020 [...] (11/22/2020): Added automatically from request for surgery [id number] care following vaginal delivery 12/28/2018 03/18/2021 Overview [...] @ quest but repeat antibody screening with [facility] was negative. Will repeat T+S w/ 28 week labs. Low Lying placenta/lateral-resolved 3 prior VDs with our group Sonn Associate Artistic Director Pt -IOL 12/28/18 @ 0800 Baby ASA [...] on file Legal Sex Female 3:24 AM HEARING AID SPECIALIST Gender Identity Female 08/13/2018 10:06 AM [...] Stran d, Sage gómez MD Complications:None Delivery Location:[facility] Main C ampus ([facility]LD) Comments 12/29-c/o pretty significant incisional pain [...] C Screening 1989 Hepatitis B Screening 10/14/2007 HPV Vaccines (1 - 3-dose SCDM series) 2016 Covid-19 Vaccine ( season) 2025 01/11/2022, 05/03/2021, 09/11/2020, Additional history exists Influenza Vaccine (#1) 2025 03/01/2020 Regular Well Visit/Exam 18-64 03/04/2025 03/04/2024, 03/04/2024, 01/15/2022 Depression Screening 05/19/2025 05/19/2024, 03/04/2024, 07/13/2023, Additional history exists DTaP/Tdap/Td Vaccine (3 - Td or Tdap) 10/12/2028 10/12/2018, 08/22/2015 Pneumococcal vaccine <65 Aged Out No longer eligible based on patient's age to complete this topic Varicella Vaccines Discontinued Medical Devices Implanted Type Area Naval Architect Device Identifier Shelf Expiration Date Model / Serial / Lot [employer] [id number] Tvt Prolene 45x1.1cm Tape Mesh Transvaginal Blue - [id number] Implanted:Qty: 1 on 02/06/2021 by Leif Smith MD at [facility] N/A: Pelvis [employer] [id number] 01/29/2022 [id number] / / Insurance [employer] [facility]ALTHCARE [facility] Advance Directives For more information, please contact: [phone] * Full Code (Latest Code Status on File) Date Activated Date Inactivated Comments 12/28/2018 6:41 PM 12/30/2018 6:49 PM * Full Code Date Activated Date Inactivated Comments 12/28/2018 9:32 AM 12/28/2018 6:41 PM Full CPR in case of cardiopulmonary arrest Care Teams Licensed Bondsman Relationship Specialty Start Date End Date Cayla Silva PA [address] [place] [address] PCP - General Family Medicine 05/19/24 Mesha Wilson MD [address] [place] [address] Referring Physician Obstetrics and Gynecology 02/15/24
--- OUTSIDE RECORDS SUMMARY | 2025-04-20 02:04 | XMS_ITS | Encounter Summary ---
Author Organization [facility] Address [address] [place] [address] Phone Care Team Providers Care Cattle Shipper Name Role Phone Marcelo Martino Primary Care Provider [phone] Mesha Wilson MD Unavailable [phone] Cynthia Mancilla NP Primary Care Provider [phone] Cayla Silva Primary Care Provider + Encounter Details Date Type Department Care Team (Late st Contact Info) Description 05/19/2018 Documentation [facility] Medicine Obstetrics and Gynecology [address] [facility] 7th Floor [address] [place] [address] Morgan Harvey Social History Tobacco Use Types Packs/Day Years Used Date Smoking Tobacco: Never Smokeless Tobacco: Never Alcohol Use Standard Drinks/Week Comments No 0 (1 standard drink = 0.6 oz pur e alcohol) Comments Yes Sex and Gender Information Value Date Recorded Sex Assigned at Not on file Legal Sex Female 3:24 AM WELDER OXYHYDROGEN Gender Identity Female 08/13/2018 10:06 AM CDT Sexual Orientation Not on file documented as of this encounter Functional Status documented as of this encounter Plan of Treatment Not on file documented as of this encounter Visit Diagnoses Not on filedocumented in this encounter Additional Health Concerns Infection Onset Date Last Indicated Resolved Time COVID: Suspected 07/26/2020 07/26/2020 08/09/2020 3:07 AM WELDER OXYHYDROGEN documented as of this encounter Care Teams Cattle Shipper Relationship Specialty Start Date End Date Marcelo Martino PA PCP - General 10/13/17 03/03/24 Cynthia Mancilla, SUBSTITUTE CROSSING GUARD [address] [facility] [address] [place], [place] [id number] PCP - General Family Medicine 03/04/24 05/18/24 Cayla Silva PA [address] [place], [place] [id number] PCP - General Family Medicine 05/19/24 Mesha Wilson MD [address] [place] [address] Referring Physician Obstetrics and Gynecology 02/15/24 documented as of this encounter
--- OUTSIDE RECORDS SUMMARY | 2025-04-20 02:04 | XMS_ITS | Clinical Summary ---
Author Organization [facility] Address [address] [facility] [place] [address] Care Team Providers Care Garment Fitter Name Role Phone Marcelo Martino PA-C Primary Care Provider [phone] Min Lyman OD Unavailable [phone] Source Comments [facility],non-owned Affiliates and Associated Physician Practices is amultiple site organization consisting of ambulatory clinics and hospital sitesin [place], [place], [place] and [place]. This disclosure is being madepursuant to the Care Everywhere program and may not contain all information available regarding this patient. Last updated 18.[facility] Allergies No known active allergies Medications * [...] on file Legal Sex Female 5:41 AM BUILDING MAINTENANCE SUPERVISOR Gender Identity Not on file Sexual Orientation Not on file Last Filed Vital Signs Vital Sign Reading Time Taken Comments Blood Pressure 110/64 05/04/2018 11:28 AM BUILDING MAINTENANCE SUPERVISOR Pulse 80 05/04/2018 11:28 AM BUILDING MAINTENANCE SUPERVISOR Temperature 36.7 C (98 F) 05/04/2018 11:28 AM BUILDING MAINTENANCE SUPERVISOR Respiratory Rate 16 05/04/2018 11:28 AM BUILDING MAINTENANCE SUPERVISOR Oxygen Saturation 98% 05/04/2018 11:28 AM BUILDING MAINTENANCE SUPERVISOR Inhaled Oxygen Concentration - - Weight 61.2 kg (135 lb) 05/04/2018 11:28 AM BUILDING MAINTENANCE SUPERVISOR Height 162.6 cm (5' 4) 05/04/2018 11:28 AM BUILDING MAINTENANCE SUPERVISOR Body Mass Index 23.17 05/04/2018 11:28 AM BUILDING MAINTENANCE SUPERVISOR Plan of Treatment Health Maintenance Due Date Last Done Comments HIV SCREENING 2004 HEPATITIS C SCREENING 10/09/2007 DTAP/TDAP/TD VACCINES (1 - Tdap) 2008 HEPATITIS B VACCINE (1 of 3 - 19+ 3-dose series) 2008 Cervical Cancer Screening 2010 PAP SMEAR 2010 HPV VACCINE (1 - 3-dose SCDM series) 2016 PAP with HPV 10/14/2019 DEPRESSION SCREENING 06/01/2024 COVID-19 VACCINE (3 - [...] patient's age to complete this topic Insurance [facility] Care Teams Garment Fitter Relationship Specialty Start Date End Date Marcelo Martino PA-C [address] [place] [id number] PCP - General Physician Floor Layer Helper 01/04/24 Min Lyman, OD [address] [place] [id number] Fine Arts Teacher 01/04/24
--- OUTSIDE RECORDS SUMMARY | 2025-04-20 02:04 | XMS_ITS | Encounter Summary ---
Author Organization [facility] Facility Care Team Providers Care Shredding Machine Knife Changer Name Role Phone Marcelo Martino Primary Care Provider [phone] Mesha Wilson MD Unavailable [phone] Cynthia Mancilla NP Primary Care Provider [phone] Cayla Silva Primary Care Provider + Encounter Details Date Type Department Care Team (Latest Contact Info) Description 04/03/2017 Orders Only [facility] Provider, MD Gabrielle [address] [place] [id number] Social History Tobacco Use Types Packs/Day Years Used Date Smoking Tobacco: Never Assessed Comments Unknown Sex and Gender Information Value Date Recorded Sex Assigned at Not on file Legal Sex Female 3:24 AM STATION CASHIER Gender Identity Female 08/13/2018 10:06 AM CDT [...] COVID: Suspected 07/26/2020 07/26/2020 08/09/2020 3:07 AM STATION CASHIER documented as of this encounter Care Teams Shredding Machine Knife Changer Relationship Specialty Start Date End Date Marcelo Martino PA PCP - General 10/13/17 03/03/24 Cynthia Mancilla, SWITCHBOARD MANAGER [address] [facility] [address] [place] [address] PCP - General Family Medicine 03/04/24 05/18/24 Cayla Silva PA [address] [place] [address] PCP - General Family Medicine 05/19/24 Mesha Wilson MD [address] [place] [address] Referring Physician Obstetrics and Gynecology 02/15/24 documented as of this encounter
--- OUTSIDE RECORDS SUMMARY | 2025-04-20 02:04 | XMS_ITS | Encounter Summary ---
Author Organization [facility] Care Team Providers Care Coat Fitter Name Role Phone Marcelo Martino Primary Care Provider [phone] Mesha Wilson MD Unavailable [phone] Cynthia Mancilla NP Primary Care Provider [phone] Cayla Silva Primary Care Provider + Encounter Details Date Type Department Care Team (Latest Contact Info) Description 06/17/2017 Orders Only [facility] CLINCONV Provider, MD Gabrielle [address] [place] [id number] Social History Tobacco Use Types Packs/Day Years Used Date Smoking Tobacco: Never Assessed Comments Unknown Sex and Gender Information Value Date Recorded Sex Assigned at Not on file Legal Sex Female 3:24 AM 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 Historical Provider Final Res ult documented in this encounter Visit Diagnoses Not on filedocumented in this encounter Additional Health Concerns Infection Onset Date Last Indicated Resolved Time COVID: Suspected 07/26/2020 07/26/2020 08/09/2020 3:07 AM BOOKBINDING MACHINE OPERATOR documented as of this encounter Care Teams Coat Fitter Relationship Specialty Start Date End Date Marcelo Martino PA PCP - General 10/13/17 03/03/24 Cynthia Mancilla, WATER USE INSPECTOR [facility] [address] [place] [address] PCP - General Family Medicine 03/04/24 05/18/24 Cayla Silva PA [address] [facility] [address] [place] [address] PCP - General Family Medicine 05/19/24 Mesha Wilson MD [address] [place] [address] Referring Physician Obstetrics and Gynecology 02/15/24 documented as of this encounter
--- OUTSIDE RECORDS SUMMARY | 2025-04-20 02:04 | XMS_ITS | Clinical Summary ---
Author Organization [facility] Address [address] [place] [address] Care Team Providers Care Display Fabricator Name Role Phone Marcelo Martino PA-C Primary Care Provider [phone] Allergies No known active allergies Medications No known medications Family History Medical History Relation Comments No Known Problems Father No Known Problems Mother Relation Status Comments Father Mother Social History Tobacco Use Types Packs/Day Years Used Date Smoking Tobacco: Never Smokeless Tobacco: Never Alcohol Use Standard Drinks/Week Comments Never 0 (1 standard drink = 0.6 oz pur e alcohol) AUDIT-C Answer Date Recorded Q1: How often do you have a drink containing alc ohol? Never 10/21/2020 Average Number of Drinks Not on file 021 Frequency of Binge Drinking Not on file 09/30 Comments No Sex and Gender Information Value Date Recorded Sex Assigned at Not on file Legal Sex Female 4:58 PM CDT Gender Identity Not on file Sexual Orientation Not on file Last Filed Vital Signs Vital Sign Reading Time Taken Comments Blood Pressure 137/89 06/03/2021 12:56 PM DIE CUTTER DIAMOND Pulse 85 06/03/2021 12:56 PM DIE CUTTER DIAMOND Temperature 36.4 C (97.5 F) 06/03/2021 12:56 PM DIE CUTTER DIAMOND Respiratory Rate 18 06/03/2021 12:56 PM DIE CUTTER DIAMOND Oxygen Saturation 100% 06/03/2021 12:56 PM DIE CUTTER DIAMOND Inhaled Oxygen Concentration - - Weight 63 kg (139 lb) 06/03/2021 12:56 PM DIE CUTTER DIAMOND Height 162.6 cm (5' 4) 06/03/2021 12:56 PM DIE CUTTER DIAMOND Body Mass Index 23.86 06/03/2021 12:56 PM DIE CUTTER DIAMOND Plan of Treatment Health Maintenance Due Date Last Done Comments Annual Physical 1992 Hepatitis C 10/14/2007 Hepatitis B Vaccines (1 of 3 - 19+ 3-dose series) 2008 HPV Vaccines (1 - 3-dose SCD M series) 2016 COVID-19 Vaccine (3 - 2024-2 6 season) 2025 09/11/2020, 08/14/2020 Influenza Adult (#1) 2025 03/01/2020 DTaP, Tdap and Td Vaccines ( 3 - Td or Tdap) 10/12/2028 10/12/2018, 08/22/2015 Hepatitis A Vaccines Aged Out No long er eligible based on patient's age to complete this topic Meningococcal B Vaccine Aged Out No l onger eligible based on patient's age to complete this topic Meningococcal Vaccine Aged Out No gertrude sue eligible based on patient's age to complete this topic Pneumococcal Vaccine: Pediatrics (0 to 5 Years) and At-Risk Patients (6 to 49 Years) Aged Out No longer eligible b ased on patient's age to complete this topic RSV Immunizations Under 20 Months Aged Out No longer eligible b ased on patient's age to complete this topic Insurance [employer] Care Teams Display Fabricator Relationship Specialty Start Date End Date Marcelo Martino PA-C [facility] - General 10/11/16
[2025-04-20] MEDS: TRANEXAMIC ACID 1,000MG/ISO100 1,000 MG/100 ML BAG 200 MG IVPB (06:35)
[2025-04-20] MEDS: LACTATED RINGERS 1,000 ML 30 ML IV CONT ×3 (06:45→12:32)
--- NOTE | 2025-04-20 06:52 | WPDANESEPPF ---
Anes - Initial Pre Proc Eval Procedure: Operation Date: 04/20/25 07:30 Proposed Procedures p Abdominoplasty with Liposuction, Bilateral Axillary Liposuction - Moe Mejia MD Date/Time: 04/20/25 06:52 Surgeon: Moe Mejia MD Pre Op Diagnosis: Skin Laxity Patient Data Age: 34 Gender: F Height: 1.63 m Weight: 66.5 kg Last Vital Signs Temp 36.5 C 04/20/25 06:42 Pulse 81 04/20/25 06:42 BP 121/72 04/20/25 06:42 Pulse Ox 100 04/20/25 06:42 O2 Del Method Room Air 04/20/25 06:42 Allergies Allergy/AdvReac Type Severity Reaction Status Date / Time No Known Allergies Allergy Verified 04/06/25 14:30 Home Medications ?Medication ?Instructions ?Recorded ?Confirmed ?Type cyclobenzaprine 10 mg tablet 10 mg PO DIRECTED 02/10/22 04/06/25 History ascorbate calcium (vitamin C) 500 500 mg PO DAILY 06/21/24 04/06/25 History mg tablet cholecalciferol (vitamin D3) 10 10 mcg PO DAILY 06/21/24 04/06/25 History mcg (400 unit) capsule estradiol 2 mg tablet 2 mg PO DAILY 90 days #90 tabs 06/21/24 04/06/25 Rx Laboratory Tests 04/20/25 06:16 Cotinine Negative Patient hx anesthesia problems: post op nausea/vomiting Family hx anesthesia problems: none Results Review: All pre-operative results and documents have been reviewed as part of the pre-operative evaluation. [facility] Past Medical History Medical History Osteopenia IBS (irritable bowel syndrome) Fibromyalgia Surgical History Surgical History History of hysterectomy ~2020 H/O bilateral salpingectomy Family History Family History Mother Breast cancer Other Bone cancer Social History Social History (Updated 06/21/24 @ 14:35 by Lawson Morgan MA) Smoking status: Never smoker Alcohol intake: current Substance use: never Substance use type: does not use Do You Feel Safe in your Home?: Yes Lack of Transportation: No Lack of Food: Never True Current Housing: I Have Housing Concerned About Future Housing: No Difficulty Paying Gas/Electric Bills: No Difficulty Paying for Meds: No Currently Unemployed: No Education: Bachelor's Degree Difficulty w/ Childcare or Family Care: No Living arrangements: with family Occupation/Education: occupation 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 Gender identity (if verbalized by the patient): Female Sexual Orientation (if Verbalized by the Patient): Straight or Heterosexual Spiritual care concerns: No Anes - Eval Final PreProcedure Day of Procedure 04/20/25 06:52 Patient weight: overweight Heart: regular rate and rhythm Lungs: clear to auscultation Airway: Mallampati scale (small mouth ) class III Neurological: alert and oriented Last oral intake: >/= 8 hours ASA classification: II Emergent: no Anesthetic plan: proceed Anesthesia type and monitoring: general ETT and standard monitoring Results Review: All pre-operative results and documents have been reviewed as part of the pre-operative evaluation. Informed Consent: The patient's anesthetic plan and its attendant risks and benefits were discussed with the patient/family/POA. Questions were solicited and answers provided to the satisfaction of the patient/family/POA.
--- NOTE | 2025-04-20 07:00 | WPDHPUPDATE1 ---
History and Physical Update Update Date/Time: 04/20/25 07:00 History and Physical has been reviewed, including an updated exam of the patient. There are NO changes in the patient's condition. Risks, benefits, and alternatives have been discussed and questions answered. Patient agrees to proceed with procedure.
--- NOTE | 2025-04-20 07:15 | W.PM.PROC2 ---
Procedure Note - Detailed Date of Procedure 04/20/25 Pre-op Diagnosis Skin Laxity Post-op Diagnosis Same Procedure Performed 1. Progressive tension abdominoplasty with suction lipectomy 2. bilateral axillary suction lipectomy Surgeon Moe Mejia MD Anesthesia General Findings Tissue removed: 880 grams Lipoaspirate: 3,000 cc Diastasis 7cm Description of Procedure They are here today for the above procedures. Previously and again today the risks, benefits, alternatives were discussed in extensive detail. I wanted them to be very realistic about the risks involved as well as expectations. We discussed aftercare and what to monitor for. I was very upfront about the risks of wound breakdown leading to loss of skin, open wounds, and need for additional procedures with permanent abdominal deformity. We discussed DVT/PE risks and management. Made sure answered all of their questions to their satisfaction today and consent was obtained. They were marked in the preoperative holding area with their verification. The patient was taken to the operating room. Anesthesia was provided by anesthesiology. A Linares catheter was started. Placed prone on the operating room table with care taken to protect from injury. Prepped and draped in a standard sterile fashion. A surgical time-out was taken. Stab incisions were made and tumescent solution was infiltrated. Once adequate time was allowed for hemostasis a 5mm basket and 4mm fransisca cannula were utilized to complete suction lipectomy based on S.A.F.E. technique in multiple planes and passes. Suction lipectomy continued to result based on pre-operative planning, intra-operative observation, and rolling pinch test which were in full agreement. Patient was then placed supine with care taken to protect from injury. Prepped and draped in a standard sterile fashion. I placed the patient in a flexed position to verify the upper and lower markings would reach. I then placed supine. A thorough abdominal examination was completed. Stab incisions were made and tumescent solution was infiltrated. Once adequate time was allowed for hemostasis a 5mm basket and 4mm fransisca cannula were utilized to complete suction lipectomy based on S.A.F.E. technique in multiple planes and passes. Suction lipectomy continued to result based on pre-operative planning, intra-operative observation, and rolling pinch test which were in full agreement. This was for axillary suction lipectomy and abdomen. Axillary access site closed with 5-0 plain gut suture. A 10 blade was used to make the upper incision. I continued dissection down to the level of fascia. Elevated just what was necessary for repair of the diastasis. I then again flexed the bed to verify the upper skin flap would reach the lower markings without tension. Once verified I placed her supine once again and a 10 blade used to make the lower incision. I elevated up to level the umbilicus and left the umbilicus intact on a well-vascularized stalk. The intervening tissue was removed. A 2 mm blunt cannula with 0.5% bupivacaine was injected deep to the fascia bilaterally. I plicated the diastasis recti using 0 PDO Stratafix barbed suture. This was in 2 separate layers using 2 separate sutures as well. The patient was flexed and starting from superior to inferior began plication using 2-0 Vicryl to obliterate all space in a standard progressive tension fashion. At the umbilicus I marked out the location of the skin and inset this with 3-0 Monocryl and 4-0 Vicryl. I continued the remainder of the plication using 2-0 Vicryl until I reached my lower planned scar line. I trimmed any excess skin of the upper flap making sure this was a tension-free closure. 15 Kiko drain was placed. I then approximated using a 3 point suture with 2-0 Vicryl followed by 2-0 PDO Stratafix, 3-0 Stratafix ,running subcuticular 4-0 Monocryl, and tissue glue. Fluffs and an abdominal binder were placed. The patient was transferred to the bed in a flexed position. [place] and taken to the PACU without difficulty. All instrument and sponge counts were correct at the end of the case. Estimated Blood Loss 75 Drains Yes (15 Kiko) Packing No Pathology None sent Complications No immediate complications Condition Stable Disposition PACU
[2025-04-20] MEDS: ONDANSETRON INJ 4 MG/2 ML VIAL IV PUSH ×2 (07:21→14:05)
[2025-04-20] MEDS: SCOPOLAMINE 1 MG PATCH 1 PATCH TRANSDERM (07:21)
[2025-04-20] MEDS: FAMOTIDINE 20 MG/2 ML VIAL IV PUSH (07:21)
[2025-04-20] MEDS: ceFAZolin 2 GM in SODIUM CHLORIDE 0.9% IV 50 ML 100 ML IVPB (07:33)
[2025-04-20] MEDS: LACTATED RINGERS IRRIG 1,000 ML, LIDOCAINE 1% LOCAL INJ 50 ML, EPINEPHrine HCL INJ 1 MG... INFILTRATE (08:28)
[2025-04-20] MEDS: BUPIVACAINE/EPINEPHRINE 0.5% 50 ML VIAL 60 ML INFILTRATE (09:22)
[2025-04-20] MEDS: fentaNYL CITRATE INJ (*CRX) 100 MCG/2 ML VIAL 25 MCG IV PUSH ×5 (12:54→13:39)
[2025-04-20] MEDS: oxyCODONE HCL (*CRX) 5 MG TAB IR PO (14:53)
== END 2025-04-20 16:50 | disposition home or self-care (01) ==
PROVIDERS: Visit Provider Surgery Plastic and Reconstructive Surgery
PROC: (CPT 15877; principal; 2025-04-20 07:30)
DX: Z41.1 Encounter for cosmetic surgery (principal); L57.4 Cutis laxa senilis
CPT/HCPCS: 15877; 15830; 15847; 80307; J0690; A9270; J0166; J1100; J1171; J1200; J2003; J2250; J2405; J2704; J3010; J3290; J7120